=== PATIENT | female | born 1940 | race Hispanic/Latino ===

== ENCOUNTER 2019-11-04 17:05 | Emergency (ER) | payer OTHER ==
[2019-11-04] MEDS ORDERED: LIDOCAINE 1% MPF 30 ML VIAL ONE (17:32)
--- NOTE | 2019-11-04 18:17 | RAD REPORT ---
EXAM DESCRIPTION: RAD - Tib Fib Right - 11/04/2019 5:57 pm CLINICAL HISTORY: fall injury Pain swelling COMPARISON: Tib Fib Right dated 11/06/2016 FINDINGS: Diffuse osteopenia is seen. No fracture or dislocation. Atherosclerosis.
--- NOTE | 2019-11-04 19:23 | ER ---
Nurse's Notes [facility] Name: Josie Roa Age: 78 yrs Sex: Female : 1940 Arrival Date: 11/04/2019 Time: 17:10 Bed 28 Private MD: Diagnosis: Laceration without foreign body to right rod Presentation: 11/04 17:04 Acuity: LETI 3 sv 17:04 Presenting complaint: EMS states: staff was trying to transfer the pt in to the bathroom and her right leg got scraped against something. Laceration to the RLE, dressing is on it at this time. BP 157/79 HR-58 RR-18 96% RA. Transition of care: patient was received from another setting of care (long-term care facility), [facility]. Complicating Factors: There are no complicating factors for this patient. Onset of symptoms was November 04, 2019. Risk Assessment: Do you want to hurt yourself or someone else? Patient reports no desire to harm self or others. Initial Sepsis Screen: Does the patient meet any 2 criteria? No. Patient's initial sepsis screen is negative. Does the patient have a suspected source of infection? No. Patient's initial sepsis screen is negative. Care prior to arrival: None. 17:04 Method Of Arrival: EMS: [facility] Triage Assessment: 17:10 General: Appears in no apparent distress. uncomfortable, Behavior is calm, cooperative, sv appropriate for age. Pain: Complains of pain in right leg. Neuro: Level of Consciousness is awake, alert, obeys commands, Oriented to person, situation, Moves all extremities. Respiratory: Airway is patent Respiratory effort is even, unlabored, Respiratory pattern is regular, symmetrical. Derm: Skin is pink, warm \T\ dry. Injury Description: Laceration sustained to lateral aspect of right calf is jagged, 7.6 to 20 cm long, was sustained 30-60 minutes ago. is bleeding a small amount. Historical: - Allergies: 17:25 No Known Allergies; sv - PMHx: 17:25 Cirrhosis; Dementia; DYSPHAGIA; HEART FAILURE; GERD; Hypertension; MUSCLE WEAKNESS; sv Pneumonia; Urinary incontinence; - Immunization history:: Adult Immunizations up to date. - Coronavirus screen:: The patient has NOT traveled to [place], [place], or [place] in the past 14 days. Proceed with normal triage process as indicated. - Social history:: Smoking status: Patient denies any tobacco usage or history of. - Ebola Screening: : No symptoms or risks identified at this time. Screenin:10 Abuse screen: Denies threats or abuse. Denies injuries from another. Nutritional sv screening: No deficits noted. Tuberculosis screening: No symptoms or risk factors identified. Fall Risk None identified. Assessment: 18:01 Reassessment: Patient appears in no apparent distress at this time. No changes from sv previously documented assessment. Patient and/or family updated on plan of care and expected duration. Pain level reassessed. 18:32 Reassessment: Awaiting for laceration repair. sv 19:12 Reassessment: Patient appears in no apparent distress at this time. Patient and/or bb3 family updated on plan of care and expected duration. Pain level reassessed. Patient is alert, oriented x 3, equal unlabored respirations, skin warm/dry/pink. 20:26 Reassessment: Patient appears in no apparent distress at this time. Patient denies pain bb3 at this time. Vital Signs: 17:05 BP 147 / 72; Pulse 68; Resp 16; Temp 98; Pulse Ox 98% ; sv 18:20 BP 164 / 74; Pulse 69; Resp 16; Pulse Ox 99% ; sv 19:29 BP 130 / 66; Pulse 66; Resp 16; Pulse Ox 100% ; lt1 20:23 BP 139 / 67; Pulse 60; Resp 18; Pulse Ox 98% ; Pain 0/10; bb3 ED Course: 17:10 Patient arrived in ED. sv 17:10 Nayely Yun, RN is Primary Nurse. sv 17:10 Triage completed. sv 17:10 Patient has correct armband on for positive identification. Bed in low position. Call sv light in reach. Side rails up X2. Pulse ox on. NIBP on. Door closed. Warm blanket given. Head of bed elevated. 17:15 [facility] Weathers [facility]C [facility] la1 17:15 Patricio Berrios MD is Attending Physician. la1 17:25 Arm band placed on. sv 17:26 Nurse Practitioner and/or Physician Renewals Specialist to see patient. sv 17:58 Tib Fib Right XRAY In Process Unspecified. EDMS 18:30 Assist provider with laceration repair on right ord using sutures. Set up tray. mg2 Performed by Ammon CRAIN Dressed with 4X4s, Patient tolerated well. Patient did not have IV access during this emergency room visit. 19:00 Report given to Myesha MEZA. sv 19:03 Primary Nurse role handed off by Nayely Yun RN sv Administered Medications: 18:54 Drug: Lidocaine (1 %) 20 ml {Note: given to Ammon CHIEF OPTOMETRY SERVICE for procedure.} Volume: 20 ml; sv Route: Infiltration; 19:30 Follow up: Response: No adverse reaction mg2 Outcome: 19:22 Discharge ordered by MD. galvez 20:00 Discharged to [facility]. Report called to Ana Maria Green mg2 20:00 Condition: stable 20:00 Discharge instructions given to patient, EMS, Instructed on discharge instructions, follow up and referral plans. Demonstrated understanding of instructions, follow-up care. 21:34 Patient left the ED. bb3 Signatures: Dispatcher [employer] EDMS Nayely Yun RN RN sv Attema, Lee, FNP-C FNP-[facility]1 Ramakrishna Frost RN RN mg2 Rhonda [facility] Myesha Kraus bb3
--- NOTE | 2019-11-04 19:23 | EDPHYS ---
Physician Documentation [facility] Name: Josie Roa Age: 78 yrs Sex: Female : 1940 Arrival Date: 11/04/2019 Time: 17:10 Bed 28 Private MD: ED Physician Patricio Berrios HPI: 11/04 17:41 This 78 yrs old Female presents to ER via EMS with complaints of Laceration To la1 Leg. 17:41 The patient has a laceration occurred at a long-term or assisted living facility. la1 The laceration(s) is(are) located on the right rod. Onset: The symptoms/episode began/occurred just prior to arrival. Associated signs and symptoms: Pertinent negatives: deformity, dizziness, heavy bleeding, loss of consciousness, numbness distal to injury. The patient has not experienced similar symptoms in the past. Historical: - Allergies: 17:25 No Known Allergies; sv - PMHx: 17:25 Cirrhosis; Dementia; DYSPHAGIA; HEART FAILURE; GERD; Hypertension; MUSCLE WEAKNESS; sv Pneumonia; Urinary incontinence; - Immunization history:: Adult Immunizations up to date. - Coronavirus screen:: The patient has NOT traveled to [place], [place], or [place] in the past 14 days. Proceed with normal triage process as indicated. - Social history:: Smoking status: Patient denies any tobacco usage or history of. - Ebola Screening: : No symptoms or risks identified at this time. ROS: 17:42 MS/extremity: Positive for laceration, of the right rod. la1 17:42 Unable to obtain ROS due to altered mental status. Exam: 17:42 Constitutional: This is a well developed, well nourished patient who is awake, alert, la1 and in no acute distress. Head/Face: Normocephalic, atraumatic. Eyes: Pupils equal round and reactive to light, extra-ocular motions intact. Lids and lashes normal. Conjunctiva and sclera are non-icteric and not injected. Cornea within normal limits. Periorbital areas with no swelling, redness, or edema. ENT: Mucous membranes moist. Chest/axilla: Normal chest wall appearance and motion. Nontender with no deformity. No lesions are appreciated. Cardiovascular: Regular rate and rhythm with a normal S1 and S2. No gallops, murmurs, or rubs. Normal PMI, no JVD. No pulse deficits. Respiratory: Lungs have equal breath sounds bilaterally, clear to auscultation No rales, rhonchi or wheezes noted. No increased work of breathing Abdomen/GI: Soft, non-tender, with normal bowel sounds. No distension or tympany. No guarding or rebound. No evidence of tenderness throughout. 17:42 MS/ Extremity: Pulses equal, no cyanosis. Neurovascular intact. Full, normal range of motion. 17:42 Skin: Appearance: normal except for affected area, injury, laceration(s), the wound is approximately 13 cm(s), with a depth of 1 cm(s), of the right rod, that can be described as clean, no foreign body, irregular, with mild bleeding. 17:42 Neuro: Orientation: to person, place, situation, Not oriented to time. Vital Signs: 17:05 BP 147 / 72; Pulse 68; Resp 16; Temp 98; Pulse Ox 98% ; sv 18:20 BP 164 / 74; Pulse 69; Resp 16; Pulse Ox 99% ; sv 19:29 BP 130 / 66; Pulse 66; Resp 16; Pulse Ox 100% ; lt1 20:23 BP 139 / 67; Pulse 60; Resp 18; Pulse Ox 98% ; Pain 0/10; bb3 Laceration: 19:20 Wound Repair of 13cm ( 5.1in ) subcutaneous laceration to right rod. Distal la1 neuro/vascular/tendon intact. Anesthesia: Local anesthetic administered with 10 mls of 1% lidocaine. Wound prep: Extensive cleansing, Copious irrigation. Skin closed with 2 4-0 Prolene using horizontal mattress sutures and sterile technique. Skin closed with 11 4-0 Prolene using simple sutures and sterile technique. Dressed with non-adherent dressing. Patient tolerated well. MDM: 17:15 Patient medically screened. la1 19:21 Data reviewed: vital signs, nurses notes, radiologic studies, and as a result, I will la1 discharge patient. Data interpreted: Pulse oximetry: on room air is 99 %. Interpretation: normal. Test interpretation: by ED physician or midlevel provider: plain radiologic studies. Special discussion: Based on the history and exam findings, there is no indication for further emergent testing or inpatient evaluation. I discussed with the patient/guardian the need to see the primary care provider for further evaluation of the symptoms. 11/04 17:24 Order name: Tib Fib Right XRAY; Complete Time: 18:25 la1 11/04 17:25 Order name: Suture Tray at Bedside; Complete Time: 17:36 la1 Administered Medications: 18:54 Drug: Lidocaine (1 %) 20 ml {Note: given to Ammon WIREWORKER SUPERVISOR for procedure.} Volume: 20 ml; sv Route: Infiltration; 19:30 Follow up: Response: No adverse reaction mg2 Disposition: 11/05 09:04 Co-signature as Attending Physician, Patricio Berrios MD I agree with the assessment and [facility] plan of care. Disposition: 11/04/19 19:22 Discharged to Home. Impression: Laceration without foreign body to right rod. - Condition is Stable. - Discharge Instructions: Laceration Care, Adult, Sutured Wound Care, Sutured Wound Care, [id number]. - Medication Reconciliation Form, Thank You Letter form. - Follow up: Private Physician; When: 7 - 10 days; Reason: Wound Recheck, Recheck today's complaints, Re-evaluation by your physician. - Problem is new. - Symptoms have improved. - Notes: have sutures removed in 10-14 days, immediately reports any signs of infection (redness, warmth, drainage) Signatures: Dispatcher [employer] Nayely Ramos RN RN sv Anderson, Corey, MD MD cha Attema, Lee, STATION INSTALLER AND REPAIRER-C STATION INSTALLER AND REPAIRER-Cla1 Myesha Kraus bb3 Ramakrishna Frost RN mg2 Corrections: (The following items were deleted from the chart) 11/04 21:34 19:22 11/04/2019 19:22 Discharged to Home. Impression: Laceration without foreign body bb3 to right rod. Condition is Stable. Forms are Medication Reconciliation Form, Thank You Letter, Antibiotic Education, Prescription Opioid Use. Follow up: Private Physician; When: 7 - 10 days; Reason: Wound Recheck, Recheck today's complaints, Re-evaluation by your physician. Problem is new. Symptoms have improved. la1
[2019-11-04 21:56] VITALS: TEMP 98
[2019-11-04 22:00] VITALS: BP 139/67; O2SAT 98
== END 2019-11-04 21:34 | disposition home or self-care (01) ==
LOC: ER 17:05
PROC: 0JQN0ZZ Repair Right Lower Leg Subcutaneous Tissue and Fascia, Open Approach (ICD-10-PCS; principal; 2019-11-04)
DX: S81.811A Laceration without foreign body, right lower leg, initial encounter (principal); W22.8XXA Striking against or struck by other objects, initial encounter; Y93.89 Activity, other specified; Y92.129 Unspecified place in nursing home as the place of occurrence of the external cause; I10 Essential (primary) hypertension; F03.90 Unspecified dementia, unspecified severity, without behavioral disturbance, psychotic disturbance, mood disturbance, and anxiety
CPT/HCPCS: 99284

== ENCOUNTER 2020-06-12 15:13 | Emergency (ER) | payer OTHER ==
--- OUTSIDE RECORDS SUMMARY | 2020-06-12 15:15 | XMS REPORT | Continuity of Care Document ---
:[address] [facility] t Address [address] [place] [address] Care Team Providers Name Role Phone Earline Pereira MD Attending Clinician Problems This patient has no known problems. Allergies, Adverse Reactions, Alerts This patient has no known allergies or adverse reactions. Medications This patient has no known medications. Procedures This patient has no known procedures. Encounters Start End Encounter Admission Attending Care Care Encounter Source Date/Time Date/Time Type Type Clinicians Facility Department ID 2020-01-16 2020-01-16 [facility] ANDRES Pereira [id number] 09:30:34 13:18:01 ne Visit Earline Valdez [id number] [place] [id number] [id number] [address] Results This patient has no known results.
[2020-06-12 16:43] LABS: Absolute Lymphocytes (CBC) 0.6 K/uL (0.7-4.9); Basophils % 0.2 % (0-1.3); Hematocrit 36.1 % (36.0-45.0); Lymphocytes % 9.5 % (15.3-44.8); MPV 8.1 fL (7.6-11.3)
[2020-06-12 16:53] LABS: ALT/SGPT 21 U/L (12-78); AST/SGOT 17 U/L (15-37); Albumin 3.8 g/dL (3.4-5.0); Alkaline Phosphatase 92 U/L (45-117); BUN Blood Urea Nitrogen 13 mg/dL (7-18); Bicarbonate 28 mmol/L (21-32); Bilirubin Direct 0.1 mg/dL (0-0.2); Bilirubin Total 0.3 mg/dL (0.2-1.0); Glucose Level 110 mg/dL (74-106); NT PRO-BNP 141 pg/mL (<450); Potassium 4.4 mmol/L (3.5-5.1); Protein, Total 7.7 g/dL (6.4-8.2); Sodium Level 139 mmol/L (136-145); Troponin (Emerg Dept Use Only) < 0.02 ng/mL (0.0-0.045)
--- NOTE | 2020-06-12 17:08 | RAD REPORT ---
EXAM DESCRIPTION: Elizabet Single View06/12/2020 3:49 pm CLINICAL HISTORY: sob COMPARISON: 2017 FINDINGS: The lungs appear clear of acute infiltrate. The heart is normal size IMPRESSION: No acute abnormalities displayed
--- NOTE | 2020-06-12 17:27 | EDPHYS ---
Physician Documentation [facility] Name: Josie Roa Age: 79 yrs Sex: Female : 1940 Arrival Date: 06/12/2020 Time: 15:13 Bed 15 Private MD: ED Physician Patricio Berrios HPI: 06/12 15:29 This 79 yrs old Female presents to ER via EMS with complaints of Low Oxygen cp Saturation. 15:29 Associated signs and symptoms: Pertinent negatives: chest pain, diarrhea, fever, cp vomiting. Patient is a resident of [facility] and was sent to ED for evaluation for low oxygen saturation. Historical: - Allergies: 15:19 No Known Allergies; bp - PMHx: 15:19 Cirrhosis; Dementia; DYSPHAGIA; GERD; HEART FAILURE; Hypertension; MUSCLE WEAKNESS; bp Pneumonia; Urinary incontinence; - Immunization history:: Adult Immunizations up to date. - Social history:: Smoking status: Patient denies any tobacco usage or history of. ROS: 15:35 Constitutional: Negative for fever. cp 15:35 Cardiovascular: Negative for chest pain. cp 15:35 Respiratory: Negative for cough. 15:35 Abdomen/GI: Negative for abdominal pain. 15:35 Neuro: Negative for altered mental status. 15:35 Unable to obtain ROS due to baseline dementia. Exam: 15:37 Head/Face: Normocephalic, atraumatic. cp 15:37 Constitutional: The patient appears in no acute distress, alert, awake, non-diaphoretic, non-toxic, well developed, well nourished. 15:37 Eyes: Periorbital structures: appear normal, Conjunctiva: normal, no exudate, no injection, Sclera: no appreciated abnormality, Lids and lashes: appear normal, bilaterally. 15:37 ENT: External ear(s): are unremarkable, Nose: is normal, Posterior pharynx: Airway: no evidence of obstruction, patent. 15:37 Neck: ROM/movement: is normal, is supple, no meningismus, no nuchal rigidity. 15:37 Chest/axilla: Inspection: normal, Palpation: is normal, no crepitus, no tenderness. 15:37 Cardiovascular: Rate: normal, Edema: is not appreciated, JVD: is not appreciated. 15:37 Respiratory: the patient does not display signs of respiratory distress, Respirations: normal, no use of accessory muscles, no retractions, labored breathing, is not present, Breath sounds: are clear throughout, no decreased breath sounds, no stridor, no wheezing. 15:37 Abdomen/GI: Inspection: abdomen appears normal, Palpation: abdomen is soft and non-tender, in all quadrants. 15:37 Back: pain, is absent. 15:37 Musculoskeletal/extremity: left above knee amputation. 15:37 Neuro: Orientation: unable to test, the patient has a history of dementia, Mentation: unable to test, the patient has a history of dementia. 16:30 ECG was reviewed by the Attending Physician. cp Vital Signs: 15:14 BP 130 / 80; Pulse 90; Resp 16; Temp 98.1; Pulse Ox 100% on R/A; bp 15:51 BP 142 / 86; Pulse 95; Resp 16; Pulse Ox 99% ; bp 17:15 BP 135 / 72; Pulse 57; Resp 17; Pulse Ox 99% ; bp 18:02 BP 137 / 80; Pulse 72; Resp 16; Pulse Ox 99% ; bp 19:04 BP 150 / 73; Pulse 65; Resp 16; Temp 98.5; Pulse Ox 99% ; bp 20:00 BP 138 / 77; Pulse 67; Resp 17; Pulse Ox 95% on R/A; vc MDM: 15:27 Patient medically screened. cp 15:45 Differential diagnosis: bronchitis, flu, URI, COVID-19, pneumonia. cp 17:25 Antibiotic administration: Not indicated, the patient does not have an appreciated cp infiltrate. 17:25 Data reviewed: vital signs, nurses notes, lab test result(s), radiologic studies, plain cp films, and as a result, I will discharge patient. ED course: VSS. No signs of respiratory distress observed while monitoring patient and no observed oxygen sats below 92% in ED while patient observed without supplemental oxygen. 06/12 15:29 Order name: Basic Metabolic Panel; Complete Time: 17:12 cp 06/12 17:12 Interpretation: Normal except: GLUC 110; CRE 0.50. cp 06/12 15:29 Order name: CBC with Diff; Complete Time: 17:12 cp 06/12 17:12 Interpretation: Normal except: GEORGINA% 83.8; LYM% 9.5. cp 06/12 15:29 Order name: LFT's; Complete Time: 17:12 06/12 15:29 Order name: NT PRO-BNP; Complete Time: 17:12 cp 06/12 15:29 Order name: Troponin (emerg Dept Use Only); Complete Time: 17:12 06/12 17:12 Interpretation: Reviewed. 06/12 15:29 Order name: XRAY Chest (1 view); Complete Time: 17:12 06/12 15:29 Order name: EKG; Complete Time: 15:29 cp 06/12 15:29 Order name: Cardiac monitoring; Complete Time: 16:19 cp 06/12 15:29 Order name: EKG - Nurse/Tech; Complete Time: 16:19 cp 06/12 15:29 Order name: IV Saline Lock; Complete Time: 16:19 06/12 15:29 Order name: Labs collected and sent; Complete Time: 16:19 06/12 15:29 Order name: O2 Per Protocol; Complete Time: 15:53 06/12 15:29 Order name: COVID-19 06/12 15:29 Order name: O2 Sat Monitoring; Complete Time: 15:52 cp EC:30 Rate is 71 beats/min. Rhythm is regular. MN interval is normal. QRS interval is normal. cp QT interval is normal. Interpreted by me. Reviewed by me. Administered Medications: No medications were administered Disposition: 17:30 Chart complete. 06/13 11:06 Co-signature as Attending Physician, Patricio Berrios MD I agree with the assessment and [facility] plan of care. Disposition: 06/12/20 17:26 Discharged to Home. Impression: Encounter for examination and observation for unspecified reason. - Condition is Stable. - Medication Reconciliation Form, Thank You Letter, Antibiotic Education, Prescription Opioid Use form. - Follow up: Private Physician; When: 1 - 2 days; Reason: Recheck today's complaints. - Problem is new. - Symptoms have improved. Signatures: Dispatcher [employer] Patricio Solis MD MD cha Page, Corey, PA PA cp Peltier, Brian, RN RN bp Ariela Montoya RN RN vc Corrections: (The following items were deleted from the chart) 06/12 20:53 17:26 06/12/2020 17:26 Discharged to Home. Impression: Encounter for examination and vc observation for unspecified reason. Condition is Stable. Forms are Medication Reconciliation Form, Thank You Letter, Antibiotic Education, Prescription Opioid Use. Follow up: Private Physician; When: 1 - 2 days; Reason: Recheck today's complaints. Problem is new. Symptoms have improved. cp
--- NOTE | 2020-06-12 17:27 | ER ---
Nurse's Notes [facility] Name: Josie Roa Age: 79 yrs Sex: Female : 1940 Arrival Date: 06/12/2020 Time: 15:13 Bed 15 Private MD: Diagnosis: Encounter for examination and observation for unspecified reason Presentation: 06/12 15:14 Chief complaint: EMS states: PER [facility] STAFF "SHE WASN'T TAKING BIG BREATHS USUAL." bp EMS NOTED NORMAL VITAL AND SAT ON ROOM AIR. Coronavirus screen: At this time, the client does not indicate any symptoms associated with coronavirus-19. Ebola Screen: No symptoms or risks identified at this time. Initial Sepsis Screen: Does the patient meet any 2 criteria? No. Patient's initial sepsis screen is negative. Does the patient have a suspected source of infection? No. Patient's initial sepsis screen is negative. Risk Assessment: Do you want to hurt yourself or someone else? Patient reports no desire to harm self or others. Onset of symptoms is unknown. 15:14 Method Of Arrival: EMS: [facility] bp 15:14 Acuity: LETI 3 bp Triage Assessment: 15:15 General: Appears in no apparent distress. comfortable, Behavior is cooperative, flat. bp Pain: Denies pain. EENT: No deficits noted. Neuro: Level of Consciousness is awake, confused, Oriented to none. Cardiovascular: No deficits noted. Respiratory: No deficits noted. GI: No signs and/or symptoms were reported involving the gastrointestinal system. : No signs and/or symptoms were reported regarding the genitourinary system. Derm: No deficits noted. Musculoskeletal: No deficits noted. Historical: - Allergies: 15:19 No Known Allergies; bp - PMHx: 15:19 Cirrhosis; Dementia; DYSPHAGIA; GERD; HEART FAILURE; Hypertension; MUSCLE WEAKNESS; bp Pneumonia; Urinary incontinence; - Immunization history:: Adult Immunizations up to date. - Social history:: Smoking status: Patient denies any tobacco usage or history of. Screenin:26 Abuse screen: Denies threats or abuse. Denies injuries from another. Nutritional bp screening: No deficits noted. Tuberculosis screening: No symptoms or risk factors identified. Fall Risk None identified. Assessment: 15:26 General: SEE TRIAGE NOTE. bp 17:16 Reassessment: UOP PENDING. VS STABLE. PT REMAINS ASYMPTOMATIC. bp 17:39 Reassessment: REPORT CALLED TO [place] JOSEFINA MEZA. TRANSPORT PENDING. bp 17:52 Reassessment: Spoke with SUSANA Rocha at [facility] who states they are unable ss to arrange transportation back to facility because they do not have a contract with a private ambulance service. Asked to speak with director who has reportedly left for the weekend. Josefina states she will attempt to contact DON. 18:01 Reassessment: D/C ON HOLD PER [facility] DON "REVIEWING THE CLINICALS AND DECIDING IF bp WE ARE ACCEPTING THE PATIENT BACK.". 18:02 General: Spoke with SUSANA Rocha who states to fax clinicals to their DON to see if they ss can accept patient back and attempt to arrange transportation back to [facility]. Clinicals faxed at this time.. 18:45 Reassessment: Spoke with SUSANA Rocha at [facility] who states that the DON will be ss contacting us directly after reviewing the clinicals. Will call back in 30 minutes if we haven't heard anything back. 19:06 Reassessment: ANCA MEZA SPOKEN WITH AT [place]. TRANSPORT EN ROUTE. bp 19:06 Reassessment: Assumed care from SUSANA Vásquez. 19:33 Reassessment: [facility] called and stated that transportation for the patient back to [facility] has an ETA of 45 min-hour. Vital Signs: 15:14 BP 130 / 80; Pulse 90; Resp 16; Temp 98.1; Pulse Ox 100% on R/A; bp 15:51 BP 142 / 86; Pulse 95; Resp 16; Pulse Ox 99% ; bp 17:15 BP 135 / 72; Pulse 57; Resp 17; Pulse Ox 99% ; bp 18:02 BP 137 / 80; Pulse 72; Resp 16; Pulse Ox 99% ; bp 19:04 BP 150 / 73; Pulse 65; Resp 16; Temp 98.5; Pulse Ox 99% ; bp 20:00 BP 138 / 77; Pulse 67; Resp 17; Pulse Ox 95% on R/A; ED Course: 15:13 Patient arrived in ED. bp 15:15 Arm band placed on. bp 15:17 Triage completed. bp 15:19 Patricio Taylor PA is PHCP. cp 15:19 Patricio Berrios MD is Attending Physician. cp 15:26 Patient has correct armband on for positive identification. Bed in low position. Call bp light in reach. Side rails up X2. 15:30 Fahad Gama, RN is Primary Nurse. bp 15:49 XRAY Chest (1 view) In Process Unspecified. EDMS 16:11 Inserted saline lock: 20 gauge in right antecubital area, using aseptic technique. dh4 Blood collected. 17:39 No provider procedures requiring assistance completed. IV discontinued, intact, bp bleeding controlled, No redness/swelling at site. Pressure dressing applied. Administered Medications: No medications were administered Outcome: 17:26 Discharge ordered by MD. cp 20:53 Discharged to halfway. vc 20:53 Condition: good 20:53 Discharge instructions given to patient, Instructed on discharge instructions, follow up and referral plans. Demonstrated understanding of instructions, follow-up care. 20:53 Patient left the ED. vc Signatures: Dispatcher [employer] EDWI Xochitl Poole RN RN ss Patricio Taylor, PA PA Fahad Gama, RN RN bp Ariela Montoya RN RN vc Rick Laws 4 Corrections: (The following items were deleted from the chart) 15:21 15:19 General: Appears Behavior is flat, bp bp
--- NOTE | 2020-06-13 09:00 | EKG ---
Test Date: 2020-06-12 Test Time: 16:23:22 Content Writer: AMADOR MEASUREMENT RESULTS: Intervals: Rate: 79 WA: 174 QRSD: 62 QT: 394 QTc: 451 Dora: P: 23 WA: 174 QRS: 12 T: 75 INTERPRETIVE STATEMENTS: Normal sinus rhythm Normal ECG Compared to ECG 11/05/2016 22:51:05 No significant changes Electronically Signed On 06-13-20 08:59:59 CDT by Iggy Ramirez
[2020-06-14 03:30] VITALS: TEMP 98.5
[2020-06-14 03:31] VITALS: BP 138/77; O2SAT 95
== END 2020-06-12 20:53 | disposition home or self-care (01) ==
LOC: ER 15:13
DX: Z04.89 Encounter for examination and observation for other specified reasons (principal); Z20.828 Contact with and (suspected) exposure to other viral communicable diseases; I10 Essential (primary) hypertension; F03.90 Unspecified dementia, unspecified severity, without behavioral disturbance, psychotic disturbance, mood disturbance, and anxiety
CPT/HCPCS: 93005; 85025; 80048; 36415; 80076; 84484; 83880; 71045; 99284; U0002